=== PATIENT | female | born 1995 | race Hispanic/Latino ===

== ENCOUNTER 2018-12-16 14:38 | Outpatient (CLI) | payer MEDICAID ==
--- NOTE | 2018-12-16 15:07 | ULT ---
EXAM: US Pelvic PROVIDED CLINICAL HISTORY: dates COMPARISON: None FINDINGS: The uterus measures about 9.9 x 7.7 x 7.5 cm and demonstrates a single live intrauterine gestation, 1 1 weeks 2 days by crown-rump length. heart rate of 172 bpm is documented. The ovaries appear sonographically normal. There is no evidence for free pelvic fluid. IMPRESSION: Single live intrauterine gestation, 11 weeks 2 days by crown-rump length. Correlation with standard f ollow-up anatomic survey recommended.
== END 2018-12-16 14:39 | disposition home or self-care (01) ==
LOC: BICULT 14:38
DX: Z34.81 Encounter for supervision of other normal pregnancy, first trimester (principal); Z3A.11 11 weeks gestation of pregnancy
CPT/HCPCS: 76856

== ENCOUNTER 2019-02-25 13:10 | Outpatient (CLI) | payer OTHER ==
--- NOTE | 2019-02-25 14:15 | ULT ---
Ob ultrasound: Date: 02/25/19 HISTORY: anatomy. FINDINGS: Single, live intrauterine gestation is seen, with measurements corresponding to an estimated gestatio nal age of 20 weeks and 6 days estimated gestational age and JOSE of 07/09/2019. Estimated weig ht measures 390 gm, or 14 oz (82% by Hadlock criteria). measurements are as follows: BPD: 4.76 cm, 20 weeks 3 days HC: 18.18 cm, 20 weeks 5 days AC: 16.76 cm, 21 weeks 6 days FL: 3.25 cm, 20 weeks 1 day Cervical length measures 4.6 cm. heart rate measures 150 beats/minute. Placenta is anteriorly located without evidence of placenta previa. BOUBACAR measures 12.2 cm. 3 vessel cord, cord insertion, kidneys, bladder, stomach, 4 chamber heart, lateral ventricles, cerebellum, spine, lips/nose, upper/lower extremities are visualized. No definite anomalies are seen. IMPRESSION: Single, live intrauterine of 20 weeks and 6 days estimated gestational age and JOSE at 07/08. POS: JACKIE
== END 2019-02-25 13:11 | disposition home or self-care (01) ==
LOC: BICULT 13:10
PROVIDERS: ATTEND Family Medicine
DX: Z34.82 Encounter for supervision of other normal pregnancy, second trimester (principal); Z3A.20 20 weeks gestation of pregnancy
CPT/HCPCS: 76805

== ENCOUNTER 2019-06-29 19:30 | Inpatient (IN) | payer BC, OTHER ==
[~2019-06-29 19:30] MED LIST: Bupivacaine/Epinephrine 0.25% 30 ML VIAL ONE
[2019-06-29 20:30] VITALS: BMI 27.9
[2019-06-29] MEDS ORDERED: Diphenoxylate HCl/Atropine Tablet PO PRN (20:54)
[2019-06-29] MEDS ORDERED: Lidocaine 1% (PF) 30 ML VIAL SC PRN (20:54)
[2019-06-29] MEDS ORDERED: Carboprost 250 MCG/ML AMP IM PRN (20:54)
[2019-06-29] MEDS ORDERED: Ondansetron PF 4 MG/2 ML Vial IVP PRN (20:54)
[2019-06-29] MEDS ORDERED: Ibuprofen 800 MG TAB PO PRN (20:54)
[2019-06-29] MEDS ORDERED: NS / Oxytocin 40 units/1000ml 1,000 ML IV PRN (20:54)
[2019-06-29] MEDS ORDERED: Butorphanol Tartrate 1 MG/ML VIAL SLOW IVP PRN (20:54)
[2019-06-29] MEDS ORDERED: hydrALAZINE 20 MG/ML VIAL SLOW IVP PRN (20:54)
[2019-06-29] MEDS ORDERED: HYDROcodone/Acetaminophen 5/325 mg Tablet PO PRN (20:54)
[2019-06-29] MEDS ORDERED: Methylergonovine 0.2 MG/ML VIAL IM PRN (20:54)
[2019-06-29] MEDS ORDERED: Misoprostol 200 MCG TAB PR PRN (20:54)
[2019-06-29] MEDS ORDERED: Promethazine HCl 25 MG/ML VIAL IM PRN (20:54)
[2019-06-29] MEDS ORDERED: NS w/ Oxytocin 10 units 500 ML IV SCH ×2 (21:00)
[2019-06-29 21:26] LABS: Hemoglobin 8.7 g/dL (12.0-16.0); Mean Corpuscular Hemoglobin 23.8 pg (27.0-31.0); Mean Corpuscular Volume 74.2 fL (78.0-98.0); Mean Platelet Volume 10.4 fL (7.4-10.4); Platelet Count 303 thou/uL (130-400); Red Blood Cell (RBC) Count 3.66 mill/uL (4.20-5.40); White Blood Cell (WBC) Count 9.2 thou/uL (4.8-10.8)
[2019-06-29] MEDS: Lactated Ringer's 1,000 ML IV SCH (21:38)
[2019-06-29] MEDS: Misoprostol 100 MCG TAB VAG SCH (21:38)
[2019-06-29 22:00] LABS: Syphilis Antibody Nonreactive (Nonreactive); Syphilis Antibody Index 0.27 S/CO (<1.00 Non-Reactive)
[2019-06-29 22:14] LABS: HBSAg Index 0.23 S/CO (0-0.99); Hep B Surf Ag Non-Reactive S/CO (NonReactive)
[2019-06-30] MEDS: Misoprostol 100 MCG TAB VAG SCH ×2 (01:11→04:10)
[2019-06-30] MEDS: Lactated Ringer's 1,000 ML IV SCH (04:13)
[2019-06-30] MEDS ORDERED: Fentanyl 4 mcg/Bup 0.1% Cadd 100 ML ONE (04:28)
[2019-06-30] MEDS ORDERED: Ondansetron PF 4 MG/2 ML Vial IVP PRN ×2 (05:23→09:06)
[2019-06-30] MEDS ORDERED: Lactated Ringer's 500 ML IV PRN (05:23)
[2019-06-30] MEDS ORDERED: EPHEDRINE 25 MG/5 ML SYRINGE SLOW IVP PRN (05:23)
[2019-06-30] MEDS ORDERED: Naloxone HCl 0.4 mg/ml Vial IVP PRN ×2 (05:23)
[2019-06-30] MEDS ORDERED: Acetaminophen 325 MG TAB PO PRN (05:23)
[2019-06-30] MEDS ORDERED: Promethazine HCl 25 MG/ML VIAL IM PRN (05:23)
[2019-06-30] MEDS ORDERED: diphenhydrAMINE 50 MG/ML VIAL IVP PRN (05:23)
[2019-06-30] MEDS ORDERED: Communication Order-Pharmacy FS SCH (05:30)
[2019-06-30] MEDS ORDERED: Fentanyl 4 mcg/Bupivacaine 0.1% Cassette 100 ML EPIDURAL SCH (05:30)
[2019-06-30] MEDS ORDERED: Misoprostol 200 MCG TAB ONE (06:57)
[2019-06-30] MEDS ORDERED: Methylergonovine 0.2 MG/ML VIAL ONE (06:58)
[2019-06-30] MEDS ORDERED: Carboprost 250 MCG/ML AMP ONE (06:58)
[2019-06-30] MEDS ORDERED: Benzocaine-Menthol 82.5 ML CAN TOP PRN (09:06)
[2019-06-30] MEDS ORDERED: hydrALAZINE 20 MG/ML VIAL SLOW IVP PRN (09:06)
[2019-06-30] MEDS ORDERED: diphenhydrAMINE 25 MG CAP PO PRN (09:06)
[2019-06-30] MEDS ORDERED: Milk Of Magnesia 30 ML UDCUP PO PRN (09:06)
[2019-06-30] MEDS ORDERED: Bisacodyl 10 MG SUPP PR PRN (09:06)
[2019-06-30] MEDS ORDERED: NS / Oxytocin 40 units/1000ml 1,000 ML IV SCH (09:06)
[2019-06-30] MEDS ORDERED: Adacel (T-DAP) 0.5 ML SYRINGE IM ONE (09:06)
[2019-06-30] MEDS ORDERED: Lanolin Ointment 7 GM TUBE TOP PRN (09:06)
[2019-06-30] MEDS ORDERED: HYDROcodone/Acetaminophen 5/325 mg Tablet PO PRN ×2 (09:06)
[2019-06-30] MEDS ORDERED: Prenatal Vitamin 1 TAB PO SCH (09:15)
[2019-06-30] MEDS ORDERED: Ferrous Sulfate 325 MG TAB PO SCH (09:15)
[2019-06-30] MEDS ORDERED: Docusate Calcium (SURFAK) 240 MG CAP PO SCH (09:15)
[2019-06-30] MEDS: Ibuprofen 800 MG TAB PO SCH ×2 (13:30→22:42)
[2019-06-30] MEDS: Ferrous Sulfate 325 MG TAB PO SCH (16:19)
[2019-06-30] MEDS: Docusate Calcium (SURFAK) 240 MG CAP PO SCH (22:42)
[2019-07-01 05:58] LABS: Hemoglobin 7.6 g/dL (12.0-16.0); Mean Corpuscular HGB CONC 31.7 g/dL (32.0-36.0); Mean Corpuscular Hemoglobin 23.5 pg (27.0-31.0); Mean Platelet Volume 10.3 fL (7.4-10.4); Platelet Count 254 thou/uL (130-400); RBC Distribution Width 18.9 % (11.5-14.5); Red Blood Cell (RBC) Count 3.22 mill/uL (4.20-5.40); White Blood Cell (WBC) Count 9.9 thou/uL (4.8-10.8)
[2019-07-01] MEDS: Ibuprofen 800 MG TAB PO SCH (06:24)
[2019-07-01 06:54] VITALS: TEMP 98.6
[2019-07-01 08:04] VITALS: BP 113/73
[2019-07-01] MEDS ORDERED: Prenatal Vitamin 1 TAB PO SCH (09:00)
[2019-07-01] MEDS: Docusate Calcium (SURFAK) 240 MG CAP PO SCH (09:30)
[2019-07-01] MEDS: Ferrous Sulfate 325 MG TAB PO SCH (09:30)
== END 2019-07-01 12:50 | disposition home or self-care (01) | DRG 807 ==
LOC: L&D 19:37 → 3SW 06-30 09:12
PROVIDERS: ADMIT Family Medicine; ATTEND Family Medicine
PROC: 10E0XZZ Delivery of Products of Conception, External Approach (ICD-10-PCS; principal; 2019-06-30)
PROC: 10907ZC Drainage of Amniotic Fluid, Therapeutic from Products of Conception, Via Natural or Artificial Opening (ICD-10-PCS; 2019-06-30)
DX: O69.81X0 Labor and delivery complicated by cord around neck, without compression, not applicable or unspecified (principal); Z37.0 Single live birth; Z3A.39 39 weeks gestation of pregnancy
CPT/HCPCS: 36415; 51702; 85027; 86780; 86850; 86900; 86901; 87340; J2210; J3490

== ENCOUNTER 2024-09-17 15:22 | Outpatient (CLI) | payer OTHER | END 2024-09-17 15:23 | disposition home or self-care (01) | LOC: ULT 15:22 | PROVIDERS: ATTEND Family Medicine | DX: Z34.82 Encounter for supervision of other normal pregnancy, second trimester (principal); Z3A.20 20 weeks gestation of pregnancy | CPT/HCPCS: 76805 ==